=== PATIENT | male | born 1960 | race Caucasian/White ===

== ENCOUNTER 2022-12-06 23:22 | Emergency (ER) | payer BC ==
[2022-12-06] MEDS ORDERED: Aspirin 81 MG Tab.Chew PO ONE (23:33)
[2022-12-06] MEDS ORDERED: Nitroglycerin 0.4 MG Tab.SL SL ONE (23:37)
[2022-12-06 23:57] LABS: BASOPHILS ABSOLUTE AUTO 0.07 K/uL (0.00-0.10); BASOPHILS PERCENT AUTO 0.9 % (0.1-1.3); EOSINOPHILS ABSOLUTE AUTO 0.27 K/uL (0.00-0.40); EOSINOPHILS PERCENT AUTO 3.6 % (0.0-5.4); HEMATOCRIT 42.7 % (38.4-49.7); IMMATURE GRAN ABSOLUTE AUTO 0.04 K/uL (0.00-0.23); IMMATURE GRAN PERCENT AUTO 0.5 % (0.0-0.7); LYMPHOCYTES ABSOLUTE AUTO 3.16 K/uL (0.8-3.3); LYMPHOCYTES PERCENT AUTO 41.8 % (11.4-47.7); MEAN CORPUSCULAR HEMOGLOBIN 30.7 pg (31.6-35.5); MEAN CORPUSCULAR HGB CONC 35.1 g/dL (31.6-35.5); MEAN CORPUSCULAR VOLUME 87.3 fL (81.4-99.0); MONOCYTES PERCENT AUTO 7.9 % (3.3-12.6); NEUTROPHILS ABSOLUTE AUTO 3.42 K/uL (1.0-7.6); NEUTROPHILS PERCENT AUTO 45.3 % (40.0-78.1); PLATELET COUNT,PLT 175 K/uL (130-375); RED BLOOD CELL COUNT 4.89 M/uL (4.14-5.76); WHITE BLOOD CELL COUNT,WBC 7.6 K/uL (3.2-11.0)
[2022-12-07 00:11] LABS: CALCIUM 8.4 mg/dL (8.5-10.1); CREATININE 1.2 mg/dL (0.8-1.3); EST CRCL DRUG DOSING (CG) 67.59 mL/min; POTASSIUM,K 3.4 mmol/L (3.6-5.2); TROPONIN I HIGH SENSITIVITY 44.5 pg/mL (<=60.3)
[2022-12-07 00:12] LABS: ANION GAP 14.4 mmol/L (5.0-14.0)
[2022-12-07] MEDS ORDERED: Heparin Sodium 5,000 Units/ML Vial IVPUSH ONE (02:35)
[2022-12-07] MEDS ORDERED: Heparin Sodium/D5W 25,000 UNITS/500 ML BAG IV SCH (02:45)
== END 2022-12-07 13:25 ==
LOC: JP.ED 23:22
DX: I21.4 Non-ST elevation (NSTEMI) myocardial infarction (principal)
CPT/HCPCS: 36415; 71045; 80048; 84484; 85025; 85379; 85730; 93005; 93010; 96365; 96366; 96376; 99285; A9270; J1644